=== PATIENT | female | born 1995 | race Two or more races ===

== ENCOUNTER 2021-05-09 21:03 | Inpatient (IN) | payer MEDICAID, OTHER ==
[~2021-05-09] VITALS: Ht 165.1 cm; Wt 80.7 kg
--- NOTE | 2021-05-09 22:33 | NUR ---
Pt brought back to room ED5a by myself after triaging pt. Pt placed on gurney in pos of comfort and dressed in hospital gown. patiently awaiting EDMD for eval. given specimen cup for UA sample when maggye trenton.
--- NOTE | 2021-05-09 23:20 | NUR ---
PATIENT WAS MSE BY DR BRADSHAW IN ROOM 05A.
[2021-05-09 23:45] LABS: HEMATOCRIT 40.1 % (31.2-41.9); MEAN CORPUSCULAR HEMOGLOBIN 29.5 uug (24.7-32.8); MEAN CORPUSCULAR VOLUME 86.9 fL (75.5-95.3); PLATELET COUNT (AUTO) 348 K/uL (179-408)
[2021-05-09 23:50] LABS: CREATININE 0.7 mg/dL (0.6-1.3); POTASSIUM 4.1 mmol/L (3.5-5.1)
[2021-05-09 23:54] LABS: *BILIRUBIN,URIN NEGATIVE (NEGATIVE); *COLOR,URINE YELLOW (YELLOW); *KETONES,URINE NEGATIVE (NEGATIVE); *UROBILINOGEN,URINE 0.2 E.U./dl (NORMAL); LEUKOCYTE ESTERASE ,URINE NEGATIVE (NEGATIVE); NITRITE, URINE POSITIVE (NEGATIVE); PH,URINE 7.5 (5.0-8.0); UGLUCOSE NEGATIVE (NEGATIVE)
[2021-05-09 23:56] LABS: *BLOOD, URINE TRACE (NEGATIVE); *CLARITY,URINE HAZY (CLEAR)
[2021-05-10 00:03] LABS: *URINE HCG, QUAL NEGATIVE (NEGATIVE); BACTERIA,URINE MANY /HPF (NONE SEEN); RBC,URINE 0-3 /HPF (0-3); SQUAMOUS EPITHELIAL CELL,UR MODERATE /HPF (NONE SEEN); WBC,URINE 0-3 /HPF (0-3)
--- NOTE | 2021-05-10 00:11 | NUR ---
Stand by for Pelvic MAX with utern wancastro. Patient tolerated well. Comfort measures offered x1.
[2021-05-10] MEDS ORDERED: HYDROMORPHONE 1 MG/1 ML DISP.SYRIN IV ONE ×2 (00:30→02:30)
[2021-05-10] MEDS ORDERED: ONDANSETRON 4 MG/2 ML VIAL IV ONE (00:30)
[2021-05-10] MEDS ORDERED: ONDANSETRON 4 MG/2 ML VIAL ONE (00:35)
[2021-05-10] MEDS ORDERED: HYDROMORPHONE 1 MG/1 ML DISP.SYRIN ONE ×2 (00:35→02:50)
[2021-05-10] MEDS ORDERED: IV NORMAL SALINE 250 ML IV ONE (00:56)
[2021-05-10] MEDS ORDERED: SWABABLE VALVE TRANSFER SET EA MC ONE (00:56)
[2021-05-10] MEDS ORDERED: IOHEXOL 300MG/ML 100 ML INFUS..BTL ONE (00:56)
[2021-05-10] MEDS ORDERED: DOXYCYCLINE HYCLATE IV 200 MG in IV DEXTROSE 5% 250 ML IV ONE (02:30)
[2021-05-10] MEDS ORDERED: GENTAMICIN SULFATE 20 MG/2 ML VIAL IV ONE ×2 (02:30→03:18)
[2021-05-10] MEDS ORDERED: CLINDAMYCIN PHOSPHATE IV 600 MG in IV DEXTROSE 5% 100 ML IV ONE (02:30)
[2021-05-10] MEDS ORDERED: GENTAMICIN SULFATE 80 MG/2 ML VIAL ONE (02:53)
[2021-05-10] MEDS ORDERED: CLINDAMYCIN PHOSPHATE 600 MG/4 ML VIAL ONE ×2 (02:53→03:18)
--- NOTE | 2021-05-10 03:04 | NUR ---
Insurance rep called for some clinical info such as dx, labs, abnormal findings. ect. I answered all her questions, and she told me that she will set up a peer to peer transfer bc pt is "capacitated" (needs to be transfered to [facility] We will be expecting a call fromthe peer to begin transfer.
--- NOTE | 2021-05-10 04:03 | NUR ---
[facility] CALLED LEFT MESSAGE WAITING FOR CALLBACK.
--- NOTE | 2021-05-10 04:42 | NUR ---
DR OLIVIA CASTRO CALLED PATIENT IS ACCEPTED FOR ADMISSION.
--- NOTE | 2021-05-10 04:43 | NUR ---
NO BED/NURSE AVAILABLE AT THIS TIME PER FLOOR CHARGE NURSE UNABLE TO TAKE PATIENT.
[2021-05-10] MEDS ORDERED: MAGNESIUM HYDROXIDE 30 ML LIQUID UDC PO PRN (05:30)
[2021-05-10] MEDS ORDERED: HYDROCODONE/APAP 5-325MG TABLET PO PRN (05:30)
[2021-05-10] MEDS ORDERED: ONDANSETRON 4 MG/2 ML VIAL IV PRN (05:30)
[2021-05-10] MEDS ORDERED: ACETAMINOPHEN 325 MG TABLET PO PRN (05:30)
[2021-05-10] MEDS: CEFTRIAXONE 2 G in IV DEXTROSE 5% 100 ML IV SCH ×2 (05:52→06:30)
[2021-05-10] MEDS: METRONIDAZOLE 500 MG/NS 100ML 500 MG in PREMIXED 1 EACH IV SCH ×3 (05:57→21:01)
[2021-05-10] MEDS ORDERED: CEFTRIAXONE /D5W 50ML IVPB **ER PYXIS IV ONE (06:04)
[2021-05-10] MEDS ORDERED: METRONIDAZOLE 500 MG/NS 100ML 200 ML IV ONE (06:06)
[2021-05-10] MEDS ORDERED: CEFTRIAXONE 1 G VIAL ONE (06:08)
--- NOTE | 2021-05-10 06:27 | NUR ---
REPORT GIVEN TO JAVID CASEY
--- NOTE | 2021-05-10 07:30 | NUR ---
Assumed care for pt. No nurse to nurse report received from night monitor as there was no nurse assigned for this pt upon my arrival. Per ER physician pt was admitted to m/s for abd pain during previous shift. Received pt resting with eyes closed with no s/s of distress noted at this time.
[2021-05-10] MEDS: PANTOPRAZOLE SODIUM 40 MG TABLET.DR PO SCH (07:56)
[2021-05-10] MEDS ORDERED: PANTOPRAZOLE SODIUM 40 MG TABLET.DR PO ONE (08:00)
--- NOTE | 2021-05-10 09:10 | NUR ---
SBAR report given to CARMELA Coppola.
--- NOTE | 2021-05-10 09:30 | NUR ---
Pt trans to m/s floor, NAD noted.
[2021-05-10] MEDS: IV NS 1000 ML 1,000 ML IV PRN (09:42)
[2021-05-10] MEDS: MORPHINE SULFATE 2 MG/1 ML DISP.SYRIN IV PRN ×2 (09:49→13:48)
[2021-05-10 09:53] VITALS: BP 130/70
--- NOTE | 2021-05-10 09:55 | NUR ---
Received patient from ED. AOx4. On room air. No signs of acute distress. IV access on left AC, patent and intact. Vital signs WNL. Oriented patient to unit and room. Call light within reach. Will continue to monitor.
[2021-05-10 15:09] VITALS: BP 100/72
--- NOTE | 2021-05-10 18:49 | NUR ---
Patient resting in bed. AOx4. On room air. No signs of acute distress. Patient complained of pain, Morphine IV given and patient expressed relief. Needs anticipated and met. Compliant with medications and care. IV access on Left AC patent and intact. Will endorse to incoming shift for continuity of care.
[2021-05-10 20:44] VITALS: BP 102/62
[2021-05-11] MEDS: IV NS 1000 ML 1,000 ML IV PRN (00:33)
--- NOTE | 2021-05-11 04:09 | NUR ---
Received to care, lying in bed, pleasant upon approach. IV to Left AC remains patent, denies pain or discomfort. Assisted to all needs. Call light in reach, no distress noted.
[2021-05-11 04:52] VITALS: BP 103/68
[2021-05-11] MEDS: METRONIDAZOLE 500 MG/NS 100ML 500 MG in PREMIXED 1 EACH IV SCH (05:28)
[2021-05-11 06:52] LABS: HEMATOCRIT 36.6 % (31.2-41.9); MEAN CORPUSCULAR HEMOGLOBIN 29.6 uug (24.7-32.8); MEAN CORPUSCULAR VOLUME 87.5 fL (75.5-95.3); PLATELET COUNT (AUTO) 302 K/uL (179-408)
[2021-05-11 07:02] LABS: CREATININE 0.7 mg/dL (0.6-1.3); MAGNESIUM 2.1 mg/dL (1.8-2.4); PHOSPHOROUS 3.7 mg/dL (2.5-4.9); POTASSIUM 3.6 mmol/L (3.5-5.1)
[2021-05-11] MEDS: PANTOPRAZOLE SODIUM 40 MG TABLET.DR PO SCH (07:06)
[2021-05-11] MEDS: MORPHINE SULFATE 2 MG/1 ML DISP.SYRIN IV PRN ×2 (08:54→12:54)
--- NOTE | 2021-05-11 12:22 | NUR ---
Pt is a/ox 4, fiance at bedside. pt continues to have pain in abdominal area due to fibroids. Provided pt with heat packs, alleviate some pain but pt still in distress without pain medications. Administered Q4H prn medication as pt requests. Comfort measures provided, call light within reach. Will continue to monitor.
[2021-05-11] MEDS ORDERED: METR500T PO (13:02)
[2021-05-11] MEDS ORDERED: CEPH500C2 PO (13:02)
[2021-05-11] MEDS ORDERED: METRONIDAZOLE 500 MG TABLET PO SCH (14:00)
--- NOTE | 2021-05-11 14:19 | NUR ---
Pt is being discharged home via private car, Rubia at bedside to take her home. Radiology CD included in discharge paper work. Education and materials given to pt, all belongings at hand. Pt is ambulatory, refused to be wheeled down to car. Pt stabe for discharge. Pt to be seen by PCP and OB/ [employer] within 1 week. Medications sent electronically to preferred pharmacy.
== END 2021-05-11 14:20 | disposition home or self-care (01) | DRG 532 ==
LOC: ER 21:08 → MEDSURG3 05-10 09:20
PROVIDERS: ADMIT Hospitalist; ATTEND Hospitalist
DX: D25.9 Leiomyoma of uterus, unspecified (principal); N80.9 Endometriosis, unspecified; N28.1 Cyst of kidney, acquired; N39.0 Urinary tract infection, site not specified; Z20.822 Contact with and (suspected) exposure to COVID-19; T19.2XXA Foreign body in vulva and vagina, initial encounter; X58.XXXA Exposure to other specified factors, initial encounter; Y93.9 Activity, unspecified; Y92.009 Unspecified place in unspecified non-institutional (private) residence as the place of occurrence of the external cause; B96.20 Unspecified Escherichia coli [E. coli] as the cause of diseases classified elsewhere
CPT/HCPCS: 36415; 70030-TC; 76856; 83735; 84100; 84703; 85025; 87075; 87077; 87081; 87086; 87110; G0378; J0696; J1170; J1580; J2270; J2405; J3490; J7030; J7050; J7060; Q9967